=== PATIENT | female | born 1965 | race Caucasian/White ===

== ENCOUNTER 2016-08-11 18:35 | Observation (INO) ==
[2016-08-11 19:13] LABS: Basophils % 0.8 %; Eosinophils # 0.1 K/mcL (0.0-0.6); Eosinophils % 1.7 %; Hemoglobin 12.4 g/dL (11.5-15.4); Immature Granulocytes % 0.6 % (0-4); Lymphocytes # 1.2 K/mcL (0.6-4.6); Lymphocytes % 25.9 %; Mean Corpuscular HGB Conc 35.4 g/dL (31.6-35.5); Mean Corpuscular Hemoglobin 33.1 pg (28.0-33.3); Mean Corpuscular Volume 93.3 fL (83.0-100.0); Mean Platelet Volume 11.5 fL (9.4-12.4); Monocytes # 0.5 K/mcL (0.0-1.3); Monocytes % 10.9 %; Neutrophils # 2.9 K/mcL (1.6-8.9); Platelet Count 116 K/mcL (140-400); Red Blood Count 3.75 M/mcL (3.82-4.97); Red Cell Distribution Width 16.3 % (11.5-14.5); Segmented Neutrophils % 60.1 %
[2016-08-11] MEDS ORDERED: Ipratropium/Albuterol Neb 3 ML IH ONE (19:15)
[2016-08-11 19:17] LABS: Prothrombin Time 10.4 Seconds (9.4-12.1)
[2016-08-11 19:19] LABS: Activated Partial Thrombo Time 28.1 Seconds (26.0-36.0)
[2016-08-11 19:23] LABS: BUN/Creatinine Ratio 35 (6-26); Blood Urea Nitrogen 28 mg/dL (7-20); Calcium 9.4 mg/dL (8.6-10.8); Carbon Dioxide 24 mEq/L (19-29); Chloride 95 mEq/L (98-109); Glucose 94 mg/dL (70-99); Osmolality,Calculated 277 (280-300); Potassium 4.4 mEq/L (3.5-4.5); Sodium 131 mEq/L (136-145); eGFR For African Americans > 60 (> 60); eGFR For Non-African Americans > 60 (> 60)
--- NOTE | 2016-08-11 20:42 | Emergency Department Note ---
Disposition Clinical Impression: Chest pain Qualifiers: Chest pain type: unspecified Qualified Code(s): R07.9 - Chest pain, unspecified Hypertension Qualifiers: Hypertension type: essential hypertension Qualified Code(s): I10 - Essential ( primary) hypertension Disposition: Admitted As Inpatient Condition: Good Referrals: Matilde Barron CNP [Primary Care Provider] - Forms: ED Satisfaction Letter Chest Pain HPI - General Chief Complaint: ED Chest Pain Stated Complaint: Chest Pain Time Seen by Provider: 08/11/16 18:45 Source: EMS Limitations: no limitations Vital Signs Reviewed: Yes Nursing Notes Reviewed: Yes - History of Present Illness Pt complaint: chest pain Onset (ago): week(s) (1) Duration: intermittent Onset: during rest Pain Location: left chest Severity scale (1-10): 4 Quality: sharp Pain Radiation: none Improves with: nothing Worsens with: nothing Associated symptoms: Denies: nausea, vomiting, syncope, palpitations Treatments prior to arrival chest pain: aspirin, nitroglycerin - Related Data Home Medications Medication Instructions Recorded Confirmed Aspirin [Adult Low Dose Aspirin EC] 81 mg PO QAM 07/11/15 07/18/15 Ibuprofen [Motrin] 800 mg PO Q8HR 07/11/15 08/08/16 Lisinopril [Zestril] 20 mg PO DAILY 07/11/15 08/08/16 Loratadine [Claritin] 10 mg PO DAILY 07/11/15 08/08/16 Metoprolol [Lopressor] 100 mg PO QAM 07/11/15 08/08/16 Gabapentin [Neurontin] 400 mg PO TID 08/08/16 08/08/16 Previous Rx's Medication Instructions Recorded CloNIDine HCl 0.1 mg PO TID #30 tablet 08/08/16 Tramadol HCl [Ultram] 50 mg PO QID #16 tab 08/08/16 Allergies Allergy/AdvReac Type Severity Reaction Status Date / Time Sulfa (Sulfonamide Allergy Vomiting Verified 08/11/16 18:37 Antibiotics) All systems ED: reviewed and negative except as stated. 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 - Social History Smoking Status: Current every day smoker Alcohol use: Reports: occasionally, heavy Drug use: Reports: none Physical Exam - General Limitations: no limitations General appearance: alert, in no apparent distress - Head Head exam: atraumatic, normocephalic, normal inspection - Eye Eye exam: Present: normal appearance, PERRL, EOMI - Expanded Eye Exam Pupils: Left: reactive - ENT ENT exam: normal exam, normal oropharynx, mucous membranes moist - Expanded ENT Exam External ear exam: Present: normal external inspection Mouth exam: Present: normal external inspection Teeth exam: Present: normal inspection Throat exam: Present: normal inspection - Neck Neck exam: Present: normal inspection, full ROM, trachea midline - Chest Chest inspection: Present: normal inspection, symmetric chest wall rise - Respiratory Respiratory exam: Present: wheezes (Bilateral scattered with rhonchi) - Cardiovascular Cardiovascular exam: Present: regular rate, normal rhythm, normal heart sounds - Abdominal Exam Abdominal exam: Present: soft, Non-Tender. Absent: tenderness, distention, guarding, rebound, rigidity - Extremities Exam Extremities exam: Present: normal inspection, full ROM. Absent: tenderness, pedal edema - Expanded Upper Extremity Exam Shoulder exam: Present: normal inspection, full ROM Arm exam: Present: normal inspection, full ROM Elbow exam: Present: normal inspection, full ROM Forearm/Wrist exam: Present: normal inspection, full ROM Hand exam: Present: normal inspection, full ROM Vascular exam: Normal: capillary refill, radial pulse - Expanded Lower Extremity Exam Hip/Pelvis exam: Present: normal inspection, full ROM Upper leg exam: Present: normal inspection, full ROM Knee exam: Present: normal inspection, full ROM Lower leg exam: Present: normal inspection, full ROM Ankle exam: Present: normal inspection, full ROM Foot/toe exam: Present: normal inspection, full ROM Neurovascular/Tendon exam: Absent: motor deficit, sensory deficit, tendon deficit - Back Exam Back exam: Present: normal inspection, full ROM. Absent: tenderness - Neurological Exam Neurological exam: Present: alert, oriented X3 - Expanded Neurological Exam Patient oriented to: Present: person, place, time Coma Scale Eye Opening: Spontaneous Coma Scale Motor Response: Obeys Commands Coma Scale Verbal Response: Oriented Coma Scale Total: 15 - Psychiatric Psychiatric exam: Present: normal affect, normal mood - Skin Skin exam: Present: warm, dry, intact, normal color Course Vital Signs Temperature 98.3 F 08/11/16 18:39 Pulse Rate 58 08/11/16 18:39 Respiratory Rate 19 08/11/16 18:39 Blood Pressure 182/86 08/11/16 18:39 O2 Sat by Pulse Oximetry 100 08/11/16 18:39 Temperature 98.3 F 08/11/16 18:39 Pulse Rate 54 08/11/16 18:53 Respiratory Rate 16 08/11/16 19:55 Blood Pressure 182/86 08/11/16 18:53 O2 Sat by Pulse Oximetry 100 08/11/16 19:55 Oxygen Delivery Oxygen Delivery Room Air Chest Pain - Differential Diagnosis Likely: atypical chest pain, chest pain - Medical Records Medical records reviewed: Yes I reviewed the patient's medical records. - Lab Data Lab results reviewed: Yes I reviewed the patient's lab results. Result diagrams: 08/11/16 19:05 08/11/16 19:05 Lab Results 08/11/16 08/11/16 08/11/16 Range/Units 19:05 19:05 19:05 WBC 4.8 (4.3-11.1) K/mcL RBC 3.75 L (3.82-4.97) M/mcL Hgb 12.4 D (11.5-15.4) g/dL Hct 35.0 L (35.3-44.9) % MCV 93.3 (83.0-100.0) fL MCH 33.1 (28.0-33.3) pg MCHC 35.4 (31.6-35.5) g/dL RDW 16.3 H (11.5-14.5) % Plt Count 116 L (140-400) K/mcL MPV 11.5 (9.4-12.4) fL Immature Gran % 0.6 (0-4) % Seg Neutrophils % 60.1 % Lymphocytes % 25.9 % Monocytes % 10.9 % Eosinophils % 1.7 % Basophils % 0.8 % Neutrophils # 2.9 (1.6-8.9) K/mcL Lymphocytes # 1.2 (0.6-4.6) K/mcL Monocytes # 0.5 (0.0-1.3) K/mcL Eosinophils # 0.1 (0.0-0.6) K/mcL Basophils # 0.0 (0.0-0.2) K/mcL PT 10.4 (9.4-12.1) Seconds INR 1.0 APTT 28.1 (26.0-36.0) Seconds Sodium 131 L (136-145) mEq/L Potassium 4.4 (3.5-4.5) mEq/L Chloride 95 L (98-109) mEq/L Carbon Dioxide 24 (19-29) mEq/L BUN 28 H (7-20) mg/dL Creatinine 0.79 (0.57-1.11) mg/dL Est GFR ( Amer) > 60 (> 60) Est GFR (Non-Af Amer) > 60 (> 60) BUN/Creatinine Ratio 35 H (6-26) Glucose 94 (70-99) mg/dL Calculated Osmolality 277 L (280-300) Calcium 9.4 (8.6-10.8) mg/dL Troponin I (0-0.03) ng/mL 08/11/16 Range/Units 19:05 WBC (4.3-11.1) K/mcL RBC (3.82-4.97) M/mcL Hgb (11.5-15.4) g/dL Hct (35.3-44.9) % MCV (83.0-100.0) fL MCH (28.0-33.3) pg MCHC (31.6-35.5) g/dL RDW (11.5-14.5) % Plt Count (140-400) K/mcL MPV (9.4-12.4) fL Immature Gran % (0-4) % Seg Neutrophils % % Lymphocytes % % Monocytes % % Eosinophils % % Basophils % % Neutrophils # (1.6-8.9) K/mcL Lymphocytes # (0.6-4.6) K/mcL Monocytes # (0.0-1.3) K/mcL Eosinophils # (0.0-0.6) K/mcL Basophils # (0.0-0.2) K/mcL PT (9.4-12.1) Seconds INR APTT (26.0-36.0) Seconds Sodium (136-145) mEq/L Potassium (3.5-4.5) mEq/L Chloride (98-109) mEq/L Carbon Dioxide (19-29) mEq/L BUN (7-20) mg/dL Creatinine (0.57-1.11) mg/dL Est GFR ( Amer) (> 60) Est GFR (Non-Af Amer) (> 60) BUN/Creatinine Ratio (6-26) Glucose (70-99) mg/dL Calculated Osmolality (280-300) Calcium (8.6-10.8) mg/dL Troponin I 0.00 (0-0.03) ng/mL - Radiology Data Radiology results reviewed: Yes I reviewed the patient's radiology results. - EKG Data EKG shows normal: sinus rhythm Rate: bradycardia (55) Heart block present: 1st Degree Interpretation: nonspecific ST-T wave changes
[2016-08-11] MEDS ORDERED: *HR* Metoprolol 5 MG/5 ML VIAL IVP ONE (20:44)
[2016-08-11] MEDS ORDERED: traMADol 50 MG TABLET PO PRN (23:33)
[2016-08-11] MEDS ORDERED: Ondansetron 4 MG/2 ML VIAL IVP PRN (23:35)
[2016-08-11] MEDS ORDERED: *HR* LORazepam 2 MG/ML VIAL IVP PRN ×3 (23:35)
[2016-08-11] MEDS ORDERED: Acetaminophen 325 MG TABLET PO PRN (23:35)
[2016-08-11] MEDS ORDERED: Pantoprazole 40 MG VIAL IVP STA (23:35)
[2016-08-11] MEDS ORDERED: *HR* Morphine 2 MG/ML SYRINGE IVP PRN (23:35)
[2016-08-11] MEDS ORDERED: Naloxone 0.4 MG/ML INJ IVP PRN (23:35)
[2016-08-11] MEDS ORDERED: Aspirin 81 MG TAB.CHEW PO ONE (23:44)
[2016-08-11] MEDS ORDERED: methylPREDNISolone 125 MG/2 ML VIAL IVP STA (23:44)
[2016-08-11] MEDS ORDERED: *HR* Metoprolol 5 MG/5 ML VIAL IVP PRN (23:44)
[2016-08-11] MEDS ORDERED: Albuterol 2.5 MG/3 ML NEBULIZER IH PRN (23:44)
[2016-08-11] MEDS ORDERED: Nitroglycerin 0.4 MG TAB.SUBL SL PRN (23:44)
[2016-08-11] MEDS ORDERED: Benzonatate 100 MG CAPSULE PO PRN (23:44)
[2016-08-12] MEDS: Gabapentin 400 MG CAPSULE PO SCH ×3 (00:57→20:18)
[2016-08-12] MEDS: (Combigan 0.2%-0.5% Eye) OP SCH ×3 (00:57→20:19)
[2016-08-12] MEDS: *HR* OxyCODONE Immed Rel 5 MG TABLET PO PRN ×4 (00:58→20:40)
[2016-08-12] MEDS: cloNIDine HCl 0.1 MG TABLET PO SCH ×4 (00:58→20:18)
--- NOTE | 2016-08-12 00:59 | Internal Med History&Physical ---
Date of Encounter: 08/11/16 Time of Encounter: 23:00 Assessment and Plan (1) Acute chest wall pain Status: Acute . (2) Chest pain, rule out acute myocardial infarction Status: Acute . (3) Chest pain with low risk of acute coronary syndrome Status: Acute . (4) Acute on chronic respiratory failure with hypoxia and hypercapnia Status: Acute . (5) Asthma exacerbation with COPD (chronic obstructive pulmonary disease) Status: Acute . (6) Hyponatremia with decreased serum osmolality Status: Acute . (7) Costochondritis, acute Status: Acute . (8) Nicotine dependence with nicotine-induced disorder Status: Acute . Qualifiers: Nicotine product type: cigarettes Qualified Code(s): F17.219 - Nicotine dependence, cigarettes, with unspecified nicotine-induced disorders (9) Alcohol dependence syndrome Status: Acute . Qualifiers: Substance use status: unspecified alcohol-induced disorder Qualified Code(s ): F10.29 - Alcohol dependence with unspecified alcohol-induced disorder (10) DDD (degenerative disc disease), cervical Status: Acute . (11) Hypertension Status: Acute . Qualifiers: Hypertension type: essential hypertension Qualified Code(s): I10 - Essential (primary) hypertension Internal Medicine - H&P: HPI Chief complaint: Chest pain Admitted From: Emergency Dept Plans for Post Hospital Care: Home History of present illness: Ms. Manning is a 51 year old female is significant for hypertension, dyslipidemia, COPD, GERD, depression and anxiety, DDD of spine, osteoarthritis, osteopenia, peripheral neuropathy, chronic MSK pain syndrome, H/O alcohol dependency/abuse, nicotine dependency. The patient was visited and interviewed and examined. The patient is admitted to [facility] via the emergency department when she presented via EMS services from home with complaints of acute onset of left-sided chest pain occurring during rest intermittent in nature and sharp. Symptoms have been waxing and waning over a 4 day period of time was on the night of emergency room presentation. Intensity of discomfort was rated at 4-6/10. No radiation was appreciated and nothing seemed to improve discomfort when present and nothing seemed to make it worse. She denied any associated nausea vomiting presyncopal or syncopal events of perceived palpitations or edema. She acknowledgedd respiratory variation in chest pain with cough and deep inspiration. Denied any chest wall trauma. Denied hemoptysis. He acknowledges dyspnea at rest or with exertion with audible wheezing. Cough is have not scant sputum production with in nature. Denies any associated fevers chills sweats. Denies any dietary occasional recreational indiscretions. Cannot validate any potential sick contacts. She has a continuing smoker. Findings in the ED temperature 98.3 pulse 50-58 respiration 16-19 BP 182/86 with saturation 100% room air. WBC 4.8 hemoglobin 12.4 platelets 116,000. RDW 16.3. Differential normal. PT 10.4 INR 1 PTT 28.1. Metabolic panel shows a sodium 131 chloride 95. BUN 18 creatinine 0.79. Glucose 94 osmolality 277. Troponin 0.00. EKG bradycardic rate 55 bpm. First degree AV block. Nonspecific ST-T wave changes. Portable chest x-ray demonstrates no acute or active cardiopulmonary process. Preliminary impression suggests atypical chest pain with tactile and respiratory reproducibility. Patient however presents at risk for acute coronary events acknowledging her comorbidities. Presentation does suggest underlying COPD exacerbation with acute on chronic bronchitis- bronchiolitis and bronchospasm. Laboratory relatively benign. Mild hyponatremia hypo-osmolality is noted. Presenting concerns and clinical findings the patient is at relative risk for further clinical decline and/or morbidity. Workup and treatment will proceed comprehensively. Cumulative laboratory and radiographic data base was reviewed, considered and discussed. Pertinent ancillary medical records including ECW and PCI documentation was reviewed and considered. Given the patient's presenting concerns, past medical history, clinical findings and symptoms, she is admitted at this time will undergo further evaluation and disposition. Orders were written as per the computerized physician order desk caller system.......................................................................... .................... Consultative opinions will be sought as clinical circumstances justify. Pain management needs will be addressed. Laboratory and radiographic data base will be updated as appropriate. Studies include: Cultures of blood urine sputum, CPK, cardiac injury panel, BNP, PT/INR , APTT, metabolic and hematologic panel, magnesium, phosphorus, ionized calcium , thyroid panel, lipid profile, A1c, C-peptide, CRP, sedimentation rate, respiratory infection profile, respiratory virus panel, blood gas, lactic acid, amylase, lipase, UA, UDS, ETOH, serologies, etc. Precautions: Aspiration, fall, seizure, delirium protocol/surveillance initiated. Alcohol withdrawal-detoxification protocols initiated. CIWA/SAS protocol/surveillance initiated. Telemetry with continuous hemodynamic monitoring and pulse oximetry initiated. Empiric antibody coverage: Intravenous Rocephin and azithromycin pending culture data. Special studies: CT chest, chest x-ray, telemetry, EKG, echocardiogram, LE ABIs. Pulmonary toilet: Incentive spirometry, aerosol bronchodilator, mucolytic, antitussive, supplemental oxygen. Corticosteroid therapy. CPAP/BiPAP supplemental oxygen delivery. Aerosol Mucomyst therapy. Fluid and electrolyte repletion efforts will proceed. Careful attention to fluid balance and renal recovery will be emphasized. Avoidance of nephrotoxic exposure and adverse drug drug interaction in the setting of impaired renal function will be monitored closely. Acute coronary syndrome protocol/surveillance initiated. Aspirin, statin, LARON inhibitor, beta daniel, supplemental oxygen. Nitrates PRN. Morphine PRN. SQ heparin. DVT and PUD prophylaxis initiated: PPI therapy, intermittent pneumatic cuffs/ TEDs. Subcutaneous heparin. Early ambulation will be encouraged. Immunization updates recommended. Influenza and pneumococcal vaccinations as part of ongoing preventative healthcare recommendations strongly recommended. Smoking cessation counseling briefly addressed. Patient accepts nicotine medication during this hospitalization.. Advanced care directive discussion briefly addressed. Patient does not declare any healthcare restrictions at this time. Cardiovascular risk appraisal and cardiovascular risk reduction efforts will be emphasized. Physical and occupational therapy may be consulted to assess patient's functional capacity and progress mobility if circumstances warrant. Nutrition/dietary education counseling may be considered as circumstances justify. Outpatient medication schedules will be reviewed, confirmed and facilitated as appropriate. Reconciliation of home treatments including adjustments, substitutions and reintroduction into the treatment regimen will address necessary maintenance therapies for chronic pre-existing medical conditions. Plan of care has been reviewed and discussed in detail with the patient. Questions addressed. Hospital course will depend upon clinical findings, treatment response and potential consultative interventions. Patient is at risk for further acute clinical decline and morbidity due to the presenting chief complaints, findings and comorbidities. Condition is serious. Prognosis is cautiously optimistic. CODE STATUS is full. Past Med Surg Social Fam HX - Past Medical History Source: old records reviewed Medical history: arthritis, asthma, COPD, GERD, hyperlipidemia, hypertension, osteoporosis, other Psychiatric history: anxiety, depression, other - Past Surgical History Surgical History: , other - Social History Smoking Status: Current every day smoker Packs per day: 1-2ppd since 12yo Smokeless Tobacco Status: No Alcohol use: occasionally, heavy (daily; vodka and beer preferred.) Drug use: none Occupational status: unemployed Current living situation: With Family Activity Level: Independent ambulation, Mostly sedentary Recent Out of Country Travel Within the Last 8 Weeks: No Exposure or Possible Exposure to Illness During Travel: No - Family History Mother Hx Family Endocrine Disorder: Yes (DIABETIC) Internal Medicine - H&P: Meds Aspirin [Adult Low Dose Aspirin EC] 81 mg PO QAM 07/11/15 [History] Ibuprofen [Motrin] 800 mg PO Q8HR 07/11/15 [History] Lisinopril [Zestril] 20 mg PO DAILY 07/11/15 [History] CloNIDine HCl 0.1 mg PO TID #30 tablet 08/08/16 [Rx] Gabapentin [Neurontin] 400 mg PO QAM 08/08/16 [History] Brimonidine Tartrate/Timolol [Combigan 0.2%-0.5% Eye Drops] 1 drop OP BID [History] Cetirizine HCl 10 mg PO DAILY 08/11/16 [History] Gabapentin [Neurontin] 800 mg PO HS 08/11/16 [History] Metoprolol XL (24 HR) Succ [Toprol Xl] 100 mg PO DAILY 08/11/16 [History] Tramadol HCl [Ultram] 50 mg PO QID PRN 08/11/16 [History] Fluticasone/Salmeterol [Advair 250-50 Diskus] 1 each IH BID #1 blst.w.dev [Rx] HydrALAZINE 25 mg PO Q8HR #90 tablet 08/13/16 [Rx] Levofloxacin [Levaquin] 500 mg PO DAILY #10 tablet 08/13/16 [Rx] Nicotine Patch [Nicoderm] 21 mg TD DAILY #14 patch.td24 08/13/16 [Rx] PredniSONE 10 mg PO DAILY #30 tablet 08/13/16 [Rx] Tiotropium [Spiriva] 18 mcg IH DAILY #1 inh 08/13/16 [Rx] Allergies Sulfa (Sulfonamide Antibiotics) Allergy (Verified 08/11/16 18:37) Vomiting All Systems PM: A 10-system review of systems was performed and is negative for pertinent findings except as documented above in the HPI. - Constitutional Constitutional: as per HPI, malaise, no chills, no fever(s), no night sweats - EENT Eyes: as per HPI, no change in vision, no discharge, no pain, no photophobia Ears: as per HPI, no ear discharge, no ear pain, no tinnitus Nose, mouth and throat: as per HPI, no dysphagia, no nasal discharge, no neck pain, no sore throat - Cardiovascular Cardiovascular ROS IM: as per HPI, chest pain, no diaphoresis, no dyspnea, no lightheadedness, no palpitations, no syncope - Respiratory Respiratory: as per HPI, cough, dyspnea on exertion, wheezing, pain on inspiration, chest congestion, pain with cough, no dyspnea, no excessive phlegm production - Gastrointestinal Gastrointestinal: as per HPI, no abdominal pain, no diarrhea, no hematemesis, no hematochezia, no melena, no nausea, no vomiting - Genitourinary Genitourinary: as per HPI, no change in urinary stream, no dysuria, no flank pain, no hematuria - Musculoskeletal Musculoskeletal ROS IM: as per HPI, no numbness, no tingling - Integumentary Integumentary IM: as per HPI, no rash, no unusual bruising - Neurological Neurological ROS: as per HPI, no confusion, no convulsions, no focal weakness, no numbness, no tingling, no tremor(s) - Psychiatric Psychiatric: as per HPI - Endocrine Endocrine IM: as per HPI - Hematologic/Lymphatic Hematologic/Lymphatic: as per HPI, no easy bruising - Allergic/Immunologic Allergic/Immunologic: as per HPI - Constitutional Vitals: Temp Pulse Resp BP Pulse Ox 98.0 F 59 16 192/75 98 08/11/16 22:34 08/11/16 22:34 08/11/16 22:34 08/11/16 22:34 08/11/16 22:34 General appearance: Present: cooperative, mild distress, A&O X 3, answers questions appropriately - Head Head exam: Present: atraumatic, normocephalic - Eye Eye exam: Present: EOMI, PERRL, conjuntiva pink, sclera anicteric Pupils: Present: normal accommodation, PERRL - ENT ENT exam: Present: mucous membranes moist, normal oropharynx - Neck Neck exam general surgery: Present: full ROM, tenderness, supple, trachea midline. Absent: lymphadenopathy, nuchal rigidity - Expanded Neck Exam Neck exam: Present: tenderness. Absent: carotid bruit - Respiratory Respiratory exam: Present: chest wall tenderness, decreased breath sounds, rhonchi, wheezes. Absent: accessory muscle use, rales - Cardiovascular Cardiovascular exam: Present: distant heart sounds, RRR, +S1, +S2. Absent: diastolic murmur, gallop, rubs, systolic murmur - GI/Abdominal GI/Abdominal exam: Present: normal bowel sounds, soft, no peritoneal signs. Absent: distended, tenderness - Extremities Exam Extremities exam: Present: full ROM, warm, radial pulses palpable and symetrical. Absent: calf tenderness, cyanotic, pedal edema - Neurological Exam Neurological exam: Present: alert, CN II-XII intact, oriented X3, no focal deficits. Absent: pronater drift, facial droop, speech deficit - Psychiatric Psychiatric exam: Present: anxious, normal affect, normal mood - Skin Skin exam: Present: dry, intact, warm. Absent: petechiae, rash, urticaria, vesicles Internal Med - H&P Results - Labs CBC & Chem 7: 08/13/16 03:57 08/13/16 03:57 - Impressions Vital Signs Temp Pulse Resp BP Pulse Ox 08/11/16 22:34 98.0 F 59 16 192/75 98 08/11/16 22:05 97.8 F 18 168/82 08/11/16 19:55 16 100 08/11/16 18:53 54 22 182/86 100 08/11/16 18:43 54 22 182/86 100 08/11/16 18:39 98.3 F 58 19 182/86 100 Intake and Output 08/11/16 08/11/16 08/12/16 15:59 23:59 07:59 Other: Weight 56.699 kg Short CBC 08/11/16 Range/Units 19:05 WBC 4.8 (4.3-11.1) K/mcL Hgb 12.4 D (11.5-15.4) g/dL Hct 35.0 L (35.3-44.9) % Plt Count 116 L (140-400) K/mcL Neutrophils # 2.9 (1.6-8.9) K/mcL BMP 08/11/16 Range/Units 19:05 Sodium 131 L (136-145) mEq/L Potassium 4.4 (3.5-4.5) mEq/L Chloride 95 L (98-109) mEq/L Carbon Dioxide 24 (19-29) mEq/L BUN 28 H (7-20) mg/dL Creatinine 0.79 (0.57-1.11) mg/dL Glucose 94 (70-99) mg/dL Calcium 9.4 (8.6-10.8) mg/dL Cardiac Enzymes 08/11/16 Range/Units 19:05 Troponin I 0.00 (0-0.03) ng/mL Abnormal lab results RBC 3.75 M/mcL (3.82-4.97) L 08/11/16 19:05 Hct 35.0 % (35.3-44.9) L 08/11/16 19:05 RDW 16.3 % (11.5-14.5) H 08/11/16 19:05 Plt Count 116 K/mcL (140-400) L 08/11/16 19:05 Sodium 131 mEq/L (136-145) L 08/11/16 19:05 Chloride 95 mEq/L (98-109) L 08/11/16 19:05 BUN 28 mg/dL (7-20) H 08/11/16 19:05 BUN/Creatinine Ratio 35 (6-26) H 08/11/16 19:05 Calculated Osmolality 277 (280-300) L 08/11/16 19:05 Allergies Allergy/AdvReac Type Severity Reaction Status Date / Time Sulfa (Sulfonamide Allergy Vomiting Verified 08/11/16 18:37 Antibiotics) Laboratory Results WBC 4.8 K/mcL (4.3-11.1) 08/11/16 19:05 RBC 3.75 M/mcL (3.82-4.97) L 08/11/16 19:05 Hgb 12.4 g/dL (11.5-15.4) D 08/11/16 19:05 Hct 35.0 % (35.3-44.9) L 08/11/16 19:05 MCV 93.3 fL (83.0-100.0) 08/11/16 19:05 MCH 33.1 pg (28.0-33.3) 08/11/16 19:05 MCHC 35.4 g/dL (31.6-35.5) 08/11/16 19:05 RDW 16.3 % (11.5-14.5) H 08/11/16 19:05 Plt Count 116 K/mcL (140-400) L 08/11/16 19:05 MPV 11.5 fL (9.4-12.4) 08/11/16 19:05 Immature Gran % 0.6 % (0-4) 08/11/16 19:05 Seg Neutrophils % 60.1 % 08/11/16 19:05 Lymphocytes % 25.9 % 08/11/16 19:05 Monocytes % 10.9 % 08/11/16 19:05 Eosinophils % 1.7 % 08/11/16 19:05 Basophils % 0.8 % 08/11/16 19:05 Neutrophils # 2.9 K/mcL (1.6-8.9) 08/11/16 19:05 Lymphocytes # 1.2 K/mcL (0.6-4.6) 08/11/16 19:05 Monocytes # 0.5 K/mcL (0.0-1.3) 08/11/16 19:05 Eosinophils # 0.1 K/mcL (0.0-0.6) 08/11/16 19:05 Basophils # 0.0 K/mcL (0.0-0.2) 08/11/16 19:05 PT 10.4 Seconds (9.4-12.1) 08/11/16 19:05 INR 1.0 08/11/16 19:05 APTT 28.1 Seconds (26.0-36.0) 08/11/16 19:05 Sodium 131 mEq/L (136-145) L 08/11/16 19:05 Potassium 4.4 mEq/L (3.5-4.5) 08/11/16 19:05 Chloride 95 mEq/L (98-109) L 08/11/16 19:05 Carbon Dioxide 24 mEq/L (19-29) 08/11/16 19:05 BUN 28 mg/dL (7-20) H 08/11/16 19:05 Creatinine 0.79 mg/dL (0.57-1.11) 08/11/16 19:05 Est GFR ( Amer) > 60 (> 60) 08/11/16 19:05 Est GFR (Non-Af Amer) > 60 (> 60) 08/11/16 19:05 BUN/Creatinine Ratio 35 (6-26) H 08/11/16 19:05 Glucose 94 mg/dL (70-99) 08/11/16 19:05 Calculated Osmolality 277 (280-300) L 08/11/16 19:05 Calcium 9.4 mg/dL (8.6-10.8) 08/11/16 19:05 Troponin I 0.00 ng/mL (0-0.03) 08/11/16 19:05 Impressions Chest X-Ray 08/11/16 18:45 IMPRESSION: No acute cardiopulmonary abnormality. D/ / Jayme Mancini MD / Jayme Mancini MD Interpreting Provider: Jayme Mancini MD
[2016-08-12] MEDS: 0.9 % Sodium Chloride 1,000 ML IVC SCH (01:06)
[2016-08-12] MEDS: Nicotine 21 MG PATCH.TD24 TD SCH ×2 (01:07→12:48)
[2016-08-12 01:33] LABS: Hematocrit 36.6 % (35.3-44.9); Mean Corpuscular HGB Conc 35.5 g/dL (31.6-35.5); Mean Corpuscular Hemoglobin 33.3 pg (28.0-33.3); Mean Corpuscular Volume 93.8 fL (83.0-100.0); Mean Platelet Volume 12.1 fL (9.4-12.4); Platelet Count 113 K/mcL (140-400); Red Cell Distribution Width 16.6 % (11.5-14.5); VBG HCO3 29.8 mEq/L (21-27); VBG PH 7.41 pH Units (7.32-7.42)
[2016-08-12 01:48] LABS: Hemoglobin A1C 5.6 %; Magnesium 1.9 mg/dL (1.6-2.6); Phosphorous 2.4 mg/dL (2.3-4.7)
[2016-08-12 01:52] LABS: Alanine Aminotransferase 41 Units/L (0-55); Albumin 4.1 g/dL (3.5-5.0); Albumin/Globulin Ratio 1.1 (1.1-2.2); Alkaline Phosphatase 112 Units/L (38-126); Aspartate Amino Transferase 66 Units/L (5-34); BUN/Creatinine Ratio 30 (6-26); Bilirubin,Total 0.8 mg/dL (0.2-1.2); Blood Urea Nitrogen 25 mg/dL (7-20); C-Reactive Protein 2 mg/L (Less than 5); Calcium 9.7 mg/dL (8.6-10.8); Carbon Dioxide 24 mEq/L (19-29); Chloride 94 mEq/L (98-109); Chol/HDL Ratio 2.4 (0-4.9); Cholesterol 226 mg/dL (< 200); Globulin 3.9 g/dL (2.4-3.5); Glucose 143 mg/dL (70-99); HDL Cholesterol 96 mg/dL (40-59); LDL Cholesterol,Calculated 108 mg/dL (0-99); Osmolality,Calculated 279 (280-300); Sodium 131 mEq/L (136-145); Triglycerides 112 mg/dL (< 150); eGFR For African Americans > 60 (> 60); eGFR For Non-African Americans > 60 (> 60)
[2016-08-12 01:55] LABS: Amphetamine Screen,Urine Negative ng/mL (Cutoff=1000); Barbiturate Screen,Urine Negative ng/mL (Cutoff=200); Benzodiazepines Screen,Urine Negative ng/mL (Cutoff=200); Cannabinoid Screen,Urine Negative ng/mL (Cutoff = 50); Cocaine Screen,Urine Negative ng/mL (Cutoff= 300); Opiate Screen,Urine Negative ng/mL (Cutoff=300); Phencyclidine Screen,Urine Negative ng/mL (Cutoff=25)
[2016-08-12] MEDS: Azithromycin 500 MG in D5% in Water 250 ML IVPB SCH ×2 (02:00→23:54)
[2016-08-12 02:01] LABS: Amylase 56 Units/L (25-125); Ethanol < 10 mg/dL (0-10); Lipase 58 Units/L (8-78)
[2016-08-12] MEDS: Ipratropium/Albuterol Neb 3 ML IH SCH ×4 (05:07→23:01)
[2016-08-12] MEDS: *HR* Heparin 5,000 UNIT/ML VIAL SQ SCH ×3 (06:02→23:55)
[2016-08-12] MEDS: Aspirin Enteric Coated 81 MG Tablet PO SCH (08:25)
[2016-08-12] MEDS: Loratadine 10 MG TABLET PO SCH (08:25)
[2016-08-12] MEDS: Fluconazole 100 MG TABLET PO SCH (08:27)
[2016-08-12] MEDS: Folic Acid 1 MG TABLET PO SCH (08:27)
[2016-08-12] MEDS: predniSONE 20 MG TABLET PO SCH (08:28)
[2016-08-12] MEDS: Thiamine (B-1) 100 MG TABLET PO SCH (08:28)
[2016-08-12] MEDS: Vitamin B Complex/Vit C/Vit E 1 EACH TABLET PO SCH (08:28)
[2016-08-12] MEDS: Aspirin 81 MG TAB.CHEW PO SCH (08:38)
[2016-08-12] MEDS ORDERED: Metoprolol XL (24 HR) Succ 50 MG TAB.ER.24H PO SCH (09:00)
[2016-08-12 11:09] LABS: Bilirubin,Urine Negative (Negative); Blood,Urine Negative (Negative); Clarity,Urine Clear (Clear); Color,Urine Yellow (Yellow); Glucose,Urine (UA) Normal (Normal); Ketones,Urine Trace mg/dL (Negative); Leukocyte Esterase,Urine Negative (Negative); Nitrite,Urine Negative (Negative); Protein,Urine Negative (Neg-Trace); Urobilinogen,Urine Normal (Normal)
--- NOTE | 2016-08-12 11:17 | ECHO - Doppler Report ---
Echocardiogram Name: Elvia Manning Date of Study: 08/12/2016 Date: 1965 Ht: 62.0 in Medical Record#: [id number] Age: 51 Wt: 126.0 lb Gender: Female BSA: 1.57 Order #: [id number] Location: [facility] Room #: [facility] Reading Physician: Mariia Hebert DO Scrap Baler: Marty Faria RN Ordering Physician: Austin Cutler MD Primary Physician: Matilde Barron CNP Indications: Chest pain Impressions: LVEF 60%. Normal left ventricular size and systolic function. There is evidence of mild diastolic dysfunction of the left ventricle. Normal right ventricular size and function. Mild pulmonic regurgitation. No pulmonary hypertension. Left Ventricular Wall Motion: Rest Echo Findings All wall segments showed normal motion. Findings: Study Quality * Technically adequate exam. ECG Findings * Sinus bradycardia. Left Ventricle * LVEF 60%. * Normal LV chamber size, wall thickness and function. * Mild left ventricular diastolic dysfunction. Aortic Valve * Trileaflet aortic valve. * Normal aortic valve structure. * No aortic stenosis. * Trace aortic regurgitation. Mitral Valve * Trace mitral regurgitation. * Normal mitral valve structure. * No mitral stenosis. Tricuspid Valve * Normal tricuspid valve structure. * Trace tricuspid regurgitation. * Estimated RA pressure is 3 mmHg. * Estimated RVSP is 18 mmHg. * No pulmonary hypertension. Pulmonic Valve * Pulmonic valve is not well visualized. * No pulmonic stenosis. * Mild pulmonic regurgitation. Pulmonary Artery * Pulmonary artery not well visualized. Right Ventricle * Normal right ventricular structure and function. Right Atrium * Normal right atrial size. Left Atrium * Moderately dilated left atrium. Interatrial Septum * Interatrial septum not well evaluated. IVC * Normal IVC dimensions and inspiratory collapse. Pericardium * There is no pericardial effusion present. Aorta * Normally sized aortic root. History Hypertension Hypercholesteremia History of Smoking Years 35 Packs 1 Measurements: BP: 145/ 81 2D Normal Values IVSd: .90 cm 0.6 - 1.0 cm LVIDd: 4.00 cm 3.7 - 5.6 cm LVPWd: .90 cm 0.6 - 1.1 cm LVIDs: 2.90 cm 1.5 - 3.6 cm LA: 3.40 cm 2.0 - 4.0cm %FS: 27.50 cm >25 % LVOT Diam: 2.00 cm LA volume: 72 Mitral Valve Peak E:1.00 m/sec Peak A:.80 m/sec E/A Ratio:1.3 Peak E' Lat Jensen:10.6 cm/s Peak E' Med Jensen:8.87 cm/s E/E' Lat Ratio:9.4 E/E' Med Ratio:11.2 Tricuspid Valve TV Regurg Peak Grad: 15.00mmHg TV Regurg Peak Jensen: 1.93m/sec Updated by Mariia Hebert on 08/12/2016 11:11:50 AM electronically signed on 08/12/2016 11:12:29 AM with status of Final Wall Motion [place]ada: 1=Normal, 2=Hypokinesis, 3=Akinesis, 4=Dyskinesis, 5=Aneurysmal, 6=Hyperkinetic, X=Not Visualized (Blank)=Missing
--- NOTE | 2016-08-12 11:31 | Electrocardiograph Report ---
[facility] Test Date: 2016-08-11 Pat Name: Elvia Manning Department: 103 Room: 3B47 Gender: F Bus Assistant: MARY : 1965 Requested By: Adam Martinez Order Number: [id number] Reading MD: Mariia Hebert Measurements Intervals Sod Rate: 55 P: 67 CT: 232 QRS: 54 QRSD: 96 T: 65 QT: 423 QTc: 412 Interpretive Statements SINUS BRADYCARDIA WITH FIRST DEGREE AV BLOCK POSSIBLE RIGHT VENTRICULAR CONDUCTION DELAY Electronically Signed On 08-12-16 11:30:25 EST by Mariia Hebert
--- NOTE | 2016-08-12 19:41 | Arterial Study Report ---
LE Arterial Physiologic Study Patient Name:Elvia Manning Order Number:[id number] Procedure Date:08/12/2016 Date:1965Age:51 yrs Gender:Female Lt BP:220 / mmHg Rt.BP:219 / mmHgHeart Rate: Location:[facility] Room #: [facility] Pyrometallurgical Engineer:Marty Faria RN Referring MD:Austin Cutler MD alarm mechanic:Matilde Barron, ASSISTANT PROGRAM MANAGER Reading MD:Ronald Ellison MD , FACS Primary Indications:Right Greater Than Left Leg Pain Risk Factors Yes/No Hypertension Yes Diabetes No Hypercholesterolemia Yes Smoking Current Yes Hx of TIA No Hx of CVA No Anticoagulants No Hx of CAD/PTCA No Previous Vascular Surgery No Impressions: 1) Bilateral lower extremities waveform demonstrates normal hemodynamics. 2) Bilateral Ankle Brachial Index is normal. 3) Overall Impression: Arterial hemodynamics are well maintained at rest. Recommendations: Test completed on 08/12/2016 at 10:30:00 am. Findings LE Arterial Physiologic Exam: Segmental Pressures: Right: The right posterior tibial pressure is 220 mmHg with an index of 1. The right dorsalis pedis pressure is 222 mmHg with an index of 1.01. Left: The left posterior tibial pressure is 230 mmHg with an index of 1.05. The left dorsalis pedis pressure is 221 mmHg with an index of 1. PVR: Right: The PVR waveforms are normal in the right ankle. Left: The PVR waveforms are normal in the left ankle. Prior Study: No prior study available for comparison. Segmental Pressures Side Location Pressure Index Result Right Posterior Tibial 220 1.00 Normal Right Dorsalis Pedis 222 1.01 Normal Left Posterior Tibial 230 1.05 Normal Left Dorsalis Pedis 221 1.00 Normal Ankle Brachial Index Right Systolic Diastolic ADDISON Brachial 219 1.01 Dorsalis Pedis 222 1.01 Posterior Tibial 220 1.00 Left Systolic Diastolic ADDISON Brachial 220 1.05 Dorsalis Pedis 221 1.00 Posterior Tibial 230 1.05 Updated by Ronald Ellison MD, FACS on 08/12/2016 7:34:15 PM with Status of Final Ronald Ellison MD electronically signed on 08/12/2016 7:34:40 PM with status of Final
--- NOTE | 2016-08-12 20:08 | Internal Med Progress Note ---
Date of Encounter: 08/12/16 Time of Encounter: 20:04 - Assessment and plan (1) Asthma exacerbation with COPD (chronic obstructive pulmonary disease) Current Visit: Yes Status: Acute (2) Hypertension Current Visit: Yes Status: Acute Qualifiers: Hypertension type: essential hypertension Qualified Code(s): I10 - Essential (primary) hypertension (3) Hypertension, accelerated Current Visit: Yes Status: Acute (4) Lung nodule < 6cm on CT Current Visit: Yes Status: Acute (5) Lesion of liver Current Visit: Yes Status: Acute Assessment and plan: continue steroids, nebs and abx will order MRI abdomen to further evaluate liver per radiology recommendations. BP labile, will add hydralazine TID. continue lopressor, lisinopril and clonidine. Pt informed about lung nodule and need for close outpatient followup. - Subjective Interval history: Patient evaluated, seen lying in bed. no new complains. - Constitutional Vitals: Temp Pulse Resp BP Pulse Ox 98.1 F 68 12 169/85 98 08/12/16 19:34 08/12/16 19:34 08/12/16 19:34 08/12/16 19:34 08/12/16 19:34 General appearance: Present: A&O X 3 - Head Head exam: Present: atraumatic, normocephalic - Eye Eye exam: Present: PERRL, conjuntiva pink, sclera anicteric Pupils: Present: PERRL - Neck Neck exam general surgery: Present: supple, trachea midline. Absent: lymphadenopathy - Respiratory Respiratory exam: Present: CTAB. Absent: accessory muscle use, rales, rhonchi, wheezes - Cardiovascular Cardiovascular exam: Present: RRR, +S1, +S2. Absent: diastolic murmur, gallop, rubs, systolic murmur - GI/Abdominal GI/Abdominal exam: Present: normal bowel sounds, soft, no peritoneal signs. Absent: distended, tenderness - Extremities Exam Extremities exam: Present: warm, radial pulses palpable and symetrical. Absent : calf tenderness, cyanotic, pedal edema - Neurological Exam Neurological exam: Present: CN II-XII intact, oriented X3, no focal deficits. Absent: pronater drift, facial droop, speech deficit - Skin Skin exam: Present: dry, intact Internal Medicine: Result - Labs CBC & Chem 7: 08/12/16 01:10 08/12/16 01:10 Labs: Short CBC 08/12/16 Range/Units 01:10 WBC 4.4 (4.3-11.1) K/mcL Hgb 13.0 (11.5-15.4) g/dL Hct 36.6 (35.3-44.9) % Plt Count 113 L (140-400) K/mcL BMP 08/12/16 01:10 Sodium 131 L Potassium 4.0 Chloride 94 L Carbon Dioxide 24 BUN 25 H Creatinine 0.84 Glucose 143 H Calcium 9.7 Cardiac Enzymes 08/12/16 08/12/16 08/12/16 Range/Units 01:10 08:57 13:37 Troponin I 0.01 0.00 0.00 (0-0.03) ng/mL Liver Function 08/12/16 Range/Units 01:10 Total Bilirubin 0.8 (0.2-1.2) mg/dL AST 66 H (5-34) Units/L ALT 41 (0-55) Units/L Alkaline Phosphatase 112 (38-126) Units/L Albumin 4.1 (3.5-5.0) g/dL Urine 08/12/16 Range/Units 11:01 Urine Color Yellow (Yellow) Urine Clarity Clear (Clear) Urine pH 6.0 (5.0-8.0) pH Units Ur Specific Soldier 1.020 (1.010-1.025) Urine Protein Negative (Neg-Trace) mg/dL Urine Glucose (UA) Normal (Normal) mg/dL - ABG Interpretation ABG results: PT/INR, D-dimer PT 10.4 Seconds (9.4-12.1) 08/11/16 19:05 - Impressions Impressions Chest CT 08/12/16 07:40 IMPRESSION: Fatty liver with a 2.6 cm incompletely assessed low-attenuation lesion medial segment left lobe of the liver. MRI of the liver with gadolinium is recommended for complete assessment. Sequela of prior granulomatous disease. Two less than or equal to 4 mm pulmonary nodules. RECOMMENDATIONS: Fleischner Society guidelines for follow-up and management of pulmonary nodules: Nodule size less than or equal to 4 mm In a low-risk patient, no follow-up needed. In a high-risk patient, follow-up CT at 12 months; if unchanged, no further follow-up. Low risk patients include individuals with minimal or absent history of smoking and other known risk factors. High risk patients include individuals with a history of smoking or other known risk factors. Radiology 2005; 237:395-400 D/ / 08/12/2016 08:16:13 Cesar Jones MD / alfonso Interpreting Provider: Cesar Jones MD Consult Discharge Plan - Plan Referrals: Matilde Barron, MEDICAL TERRITORY MANAGER [Primary Care Provider] -
[2016-08-12] MEDS: Albuterol 2.5 MG/3 ML NEBULIZER IH SCH (22:44)
[2016-08-12] MEDS ORDERED: Water for inj. (sterile) 10 ML IV ONE (23:44)
[2016-08-12] MEDS: hydrALAZINE 25 MG TABLET PO SCH (23:55)
[2016-08-13] MEDS: 0.9 % Sodium Chloride 1,000 ML IVC SCH (00:01)
[2016-08-13] MEDS ORDERED: Haloperidol Lactate 5 MG/ML VIAL ONE (01:00)
[2016-08-13] MEDS: Haloperidol Lactate 5 MG/ML VIAL IVP STA ×2 (01:22→01:38)
[2016-08-13] MEDS ORDERED: Haloperidol Lactate 5 MG/ML VIAL IM ONE (01:41)
[2016-08-13] MEDS: Albuterol 2.5 MG/3 ML NEBULIZER IH SCH ×3 (04:00→15:36)
[2016-08-13] MEDS: Ipratropium/Albuterol Neb 3 ML IH SCH ×3 (04:00→15:34)
[2016-08-13 04:33] LABS: Basophils % 0.2 %; Eosinophils % 0.2 %; Hematocrit 33.3 % (35.3-44.9); Hemoglobin 11.6 g/dL (11.5-15.4); Immature Granulocytes % 0.3 % (0-4); Lymphocytes # 0.9 K/mcL (0.6-4.6); Lymphocytes % 13.9 %; Mean Corpuscular HGB Conc 34.8 g/dL (31.6-35.5); Mean Corpuscular Hemoglobin 32.8 pg (28.0-33.3); Mean Corpuscular Volume 94.1 fL (83.0-100.0); Mean Platelet Volume 12.9 fL (9.4-12.4); Monocytes # 0.8 K/mcL (0.0-1.3); Monocytes % 12.4 %; Neutrophils # 4.8 K/mcL (1.6-8.9); Platelet Count 125 K/mcL (140-400); Red Blood Count 3.54 M/mcL (3.82-4.97); Red Cell Distribution Width 16.3 % (11.5-14.5)
[2016-08-13 04:48] LABS: BUN/Creatinine Ratio 30 (6-26); Blood Urea Nitrogen 24 mg/dL (7-20); Calcium 9.4 mg/dL (8.6-10.8); Carbon Dioxide 24 mEq/L (19-29); Chloride 100 mEq/L (98-109); Glucose 149 mg/dL (70-99); Osmolality,Calculated 287 (280-300); Sodium 135 mEq/L (136-145); eGFR For African Americans > 60 (> 60); eGFR For Non-African Americans > 60 (> 60)
[2016-08-13] MEDS: (Combigan 0.2%-0.5% Eye) OP SCH (08:06)
[2016-08-13] MEDS: *HR* Heparin 5,000 UNIT/ML VIAL SQ SCH ×2 (08:07→15:10)
[2016-08-13] MEDS: Thiamine (B-1) 100 MG TABLET PO SCH (08:07)
[2016-08-13] MEDS: Fluconazole 100 MG TABLET PO SCH (08:07)
[2016-08-13] MEDS: predniSONE 20 MG TABLET PO SCH (08:07)
[2016-08-13] MEDS: Vitamin B Complex/Vit C/Vit E 1 EACH TABLET PO SCH (08:07)
[2016-08-13] MEDS: Loratadine 10 MG TABLET PO SCH (08:07)
[2016-08-13] MEDS: Aspirin 81 MG TAB.CHEW PO SCH (08:08)
[2016-08-13] MEDS: Aspirin Enteric Coated 81 MG Tablet PO SCH (08:08)
[2016-08-13] MEDS: Gabapentin 400 MG CAPSULE PO SCH (08:08)
[2016-08-13] MEDS: Folic Acid 1 MG TABLET PO SCH (08:08)
[2016-08-13] MEDS: hydrALAZINE 25 MG TABLET PO SCH ×2 (08:08→15:09)
[2016-08-13] MEDS: cloNIDine HCl 0.1 MG TABLET PO SCH ×2 (08:08→15:09)
[2016-08-13] MEDS: Nicotine 21 MG PATCH.TD24 TD SCH (08:08)
[2016-08-13] MEDS: *HR* OxyCODONE Immed Rel 5 MG TABLET PO PRN ×2 (08:17→15:09)
[2016-08-13 12:09] VITALS: BP 146/87
--- NOTE | 2016-08-13 17:05 | Discharge Summary ---
Date of Encounter: 08/13/16 Time of Encounter: 17:01 - Discharge Diagnosis (1) Asthma exacerbation with COPD (chronic obstructive pulmonary disease) Priority: Primary Status: Acute (2) Hypertension Priority: Secondary Status: Acute Qualifiers: Hypertension type: essential hypertension Qualified Code(s): I10 - Essential (primary) hypertension (3) Hypertension, accelerated Priority: Primary Status: Acute (4) Lung nodule < 6cm on CT Priority: Primary Status: Acute (5) Lesion of liver Priority: Primary Status: Acute - Discharge Medications Prescriptions: HydrALAZINE 25 mg PO Q8HR #90 tablet Fluticasone/Salmeterol [Advair 250-50 Diskus] 1 each IH BID #1 blst.w.dev Levofloxacin [Levaquin] 500 mg PO DAILY #10 tablet Nicotine Patch [Nicoderm] 21 mg TD DAILY #14 patch.td24 PredniSONE 10 mg PO DAILY #30 tablet Tiotropium [Spiriva] 18 mcg IH DAILY #1 inh Home Medications: Aspirin [Adult Low Dose Aspirin EC] 81 mg PO QAM 07/11/15 [History] Ibuprofen [Motrin] 800 mg PO Q8HR 07/11/15 [History] Lisinopril [Zestril] 20 mg PO DAILY 07/11/15 [History] CloNIDine HCl 0.1 mg PO TID #30 tablet 08/08/16 [Rx] Gabapentin [Neurontin] 400 mg PO QAM 08/08/16 [History] Brimonidine Tartrate/Timolol [Combigan 0.2%-0.5% Eye Drops] 1 drop OP BID [History] Cetirizine HCl 10 mg PO DAILY 08/11/16 [History] Gabapentin [Neurontin] 800 mg PO HS 08/11/16 [History] Metoprolol XL (24 HR) Succ [Toprol Xl] 100 mg PO DAILY 08/11/16 [History] Tramadol HCl [Ultram] 50 mg PO QID PRN 08/11/16 [History] Fluticasone/Salmeterol [Advair 250-50 Diskus] 1 each IH BID #1 blst.w.dev [Rx] HydrALAZINE 25 mg PO Q8HR #90 tablet 08/13/16 [Rx] Levofloxacin [Levaquin] 500 mg PO DAILY #10 tablet 08/13/16 [Rx] Nicotine Patch [Nicoderm] 21 mg TD DAILY #14 patch.td24 08/13/16 [Rx] PredniSONE 10 mg PO DAILY #30 tablet 08/13/16 [Rx] Tiotropium [Spiriva] 18 mcg IH DAILY #1 inh 08/13/16 [Rx] Allergies/Adverse Reactions: Allergies Sulfa (Sulfonamide Antibiotics) Allergy (Verified 08/11/16 18:37) Vomiting Procedures/tests Complete & Pending: Procedures Performed prior 72 hours Category Date Time Status CT chest wo con [CT] Routine Cat Scan 08/12/16 07:40 Completed MR abdomen wo/w con [MR] Routine MRI 08/13/16 06:54 Completed ECG 12 lead ECG [ECG] Routine Y 08/12/16 07:00 Ordered EV ankle brachial index Routine Y 08/12/16 23:44 Completed EV echocardiogram Routine Y 08/12/16 23:44 Completed Date of admission: 08/11/16 21:06 Primary care physician: Matilde Barron CNP Consults: 08/11/16 23:44 Consult to Nurse Navigator [CONS] Routine Comment: Consult to Nurse Navigator [CONS] Routine Comment: - Patient Status Disposition: Home, Self-Care Condition: Good Overall status at discharge: patient is back to baseline - Discharge Instructions Instructions: Prednisone (By mouth), Nicotine (Absorbed through the skin), Hydralazine (By mouth), Levofloxacin (By mouth), Fluticasone/Salmeterol (By breathing), Tiotropium (By breathing), Chest Pain (DC), Abuse of Alcohol (DC) Follow Up With: Matilde Barron CNP [Primary Care Provider] - - Diet and Activity Activity: increase activity as tolerated Diet: low fat, low cholesterol Hospital course: Ms. Manning is a 51 year old female who presented with SOB and acute exacerbation of COPD, patient was treated with steroids, nebs and abx with improvement. She was also found to have a lung nodule requiring outpatient followup. A liver lesion was also seen on CT, however repeat MRI suggested adenomas. Pt is discharged in stable condition with outpatient followup with PCP recommended. - Time Spent with Patient Total time spent providing and/or coordinating discharge services: - Constitutional Vitals: Temp Pulse Resp BP Pulse Ox 97.9 F 64 18 146/87 96 08/13/16 12:08 08/13/16 12:08 08/13/16 15:36 08/13/16 12:08 08/13/16 15:36 General appearance: Present: cooperative, mild distress, A&O X 3, answers questions appropriately
== END 2016-08-13 17:39 | disposition home or self-care (01) ==
LOC: 3BNU 18:35 → EMEROO 18:35 → SUATTDRO 21:06 → 3BNU 22:12
PROVIDERS: ADMIT Hospitalist; ATTEND Family Medicine

== ENCOUNTER 2019-05-11 13:43 | Inpatient (IN) ==
[2019-05-11 02:44] LABS: Bilirubin,Urine Small (Negative); Blood,Urine Moderate (Negative); Clarity,Urine Turbid (Clear); Color,Urine Dark Yellow (Yellow); Glucose,Urine (UA) Normal (Normal); Ketones,Urine Negative (Negative); Leukocyte Esterase,Urine Moderate (Negative); Nitrite,Urine Negative (Negative); Protein,Urine >=300 mg/dL (Neg-Trace); Specific Gravity,Urine 1.016 (1.010-1.025); Urobilinogen,Urine Normal (Normal)
[2019-05-11 02:46] LABS: RBC,Urine 15-30 per hpf (0-3); Squamous Epithelial Cell,Urine Many per lpf (None-Few); WBC,Urine TNTC per hpf (0-3)
[2019-05-11 02:57] LABS: Amorphous Sediment,Urine Moderate (Few); Bacteria,Urine Moderate per hpf (None-Few); Hyaline Casts,Urine None Seen per lpf (None-Few)
[2019-05-11 03:07] LABS: Protein/Creatinine Ratio,Urine 3.12 mg/mg (0.00-0.20); Sodium, Urine 31.5 mEq/L
[2019-05-11 03:10] LABS: Basophils % 0.1 %; Eosinophils % 0.1 %; Hematocrit 30.4 % (35.3-44.9); Hemoglobin 11.4 g/dL (11.5-15.4); Immature Granulocytes % 4.3 % (0-4); Lymphocytes # 0.7 K/mcL (0.6-4.6); Lymphocytes % 5.1 %; Mean Corpuscular Hemoglobin 32.6 pg (28.0-33.3); Mean Corpuscular Volume 86.9 fL (83.0-100.0); Mean Platelet Volume 12.4 fL (9.4-12.4); Monocytes # 0.9 K/mcL (0.0-1.3); Monocytes % 6.2 %; Neutrophils # 11.9 K/mcL (1.6-8.9); Platelet Count 123 K/mcL (140-400); Red Cell Distribution Width 14.3 % (11.5-14.5); Segmented Neutrophils % 84.2 %; White Blood Count 14.2 K/mcL (4.3-11.1)
[2019-05-11 03:20] LABS: INR 1.2; Prothrombin Time 13.4 Seconds (9.4-12.1)
[2019-05-11 03:22] LABS: Activated Partial Thrombo Time 31.6 Seconds (26.0-36.0)
[2019-05-11 03:30] LABS: Albumin 2.9 g/dL (3.5-5.7); Albumin/Globulin Ratio 0.9 (1.1-2.2); Bilirubin,Total 1.1 mg/dL (0.3-1.0); Calcium 7.4 mg/dL (8.6-10.3); Globulin 3.2 g/dL (2.4-3.5); Magnesium 1.4 mg/dL (1.6-2.6); Phosphorous 4.8 mg/dL (2.7-4.5); Potassium 3.4 mEq/L (3.5-5.1); Total Protein 6.1 g/dL (6.4-8.9)
[2019-05-11] MEDS: 0.9 % Sodium Chloride 1,000 ML IVC SCH ×2 (03:34→18:29)
[2019-05-11 03:40] LABS: Mean Corpuscular HGB Conc 37.5 g/dL (31.6-35.5)
[2019-05-11 08:37] LABS: Calcium 7.9 mg/dL (8.6-10.3); Potassium 3.9 mEq/L (3.5-5.1)
[2019-05-11] MEDS: cefTRIAXone 2,000 MG in Water for inj. (sterile) 20 ML IVPB SCH (09:08)
[2019-05-11] MEDS: *HR* Heparin 5,000 UNIT/ML VIAL SQ SCH ×3 (10:03→20:34)
[2019-05-11 12:14] LABS: Complement C3 141 mg/dL (87-200)
[~2019-05-11 13:43] MED LIST: Ipratropium/Albuterol Neb 3 ML IH PRN; Naloxone 0.4 MG/ML INJ IVP PRN; Ondansetron 4 MG/2 ML VIAL IVP PRN
[2019-05-11] MEDS ORDERED: Diclofenac Sodium (DR) 50 MG TABLET.DR PO SCH (17:00)
[2019-05-11] MEDS: Simethicone 80 MG TAB.CHEW PO SCH ×2 (18:27→20:34)
[2019-05-11] MEDS: Gabapentin 400 MG CAPSULE PO SCH (20:35)
[2019-05-11] MEDS: amLODIPine 5 MG TABLET PO SCH (20:35)
[2019-05-11] MEDS ORDERED: Latanoprost 2.5 ML BOTTLE BOTH EYES SCH (21:00)
[2019-05-11] MEDS: Diclofenac Sodium (DR) 50 MG TABLET.DR PO SCH (21:07)
[2019-05-12 05:09] LABS: Basophils % 0.2 %; Eosinophils % 0.2 %; Hematocrit 29.7 % (35.3-44.9); Hemoglobin 11.1 g/dL (11.5-15.4); Immature Granulocytes % 2.4 % (0-4); Lymphocytes # 0.8 K/mcL (0.6-4.6); Lymphocytes % 4.8 %; Mean Corpuscular Hemoglobin 32.4 pg (28.0-33.3); Mean Corpuscular Volume 86.6 fL (83.0-100.0); Mean Platelet Volume 11.6 fL (9.4-12.4); Monocytes # 1.1 K/mcL (0.0-1.3); Monocytes % 6.8 %; Neutrophils # 13.7 K/mcL (1.6-8.9); Platelet Count 176 K/mcL (140-400); Red Blood Count 3.43 M/mcL (3.82-4.97); Red Cell Distribution Width 14.6 % (11.5-14.5); Segmented Neutrophils % 85.6 %
[2019-05-12] MEDS: *HR* Heparin 5,000 UNIT/ML VIAL SQ SCH ×2 (05:20→14:41)
[2019-05-12 05:23] LABS: Mean Corpuscular HGB Conc 37.4 g/dL (31.6-35.5)
[2019-05-12 05:27] LABS: Calcium 7.9 mg/dL (8.6-10.3); Magnesium 2.1 mg/dL (1.6-2.6); Potassium 3.4 mEq/L (3.5-5.1)
[2019-05-12] MEDS ORDERED: 0.9 % Sodium Chloride 1,000 ML IVC SCH (08:15)
[2019-05-12] MEDS: Simethicone 80 MG TAB.CHEW PO SCH ×2 (08:16→12:24)
[2019-05-12] MEDS: Diclofenac Sodium (DR) 50 MG TABLET.DR PO SCH (08:16)
[2019-05-12] MEDS: amLODIPine 5 MG TABLET PO SCH (08:16)
[2019-05-12] MEDS: Gabapentin 400 MG CAPSULE PO SCH (08:16)
[2019-05-12] MEDS: cefTRIAXone 2,000 MG in Water for inj. (sterile) 20 ML IVPB SCH (08:16)
[2019-05-12] MEDS ORDERED: Aspirin Enteric Coated 81 MG Tablet PO SCH (09:00)
[2019-05-12] MEDS ORDERED: Fluticasone Propionate Nasal 50 MCG/SPRAY BOTTLE NS SCH (09:00)
[2019-05-12] MEDS ORDERED: Budesonide/Formoterol 80/4.5 1 PUFF INH IH SCH (09:00)
[2019-05-12] MEDS ORDERED: Metoprolol XL (24 HR) Succ 50 MG TAB.ER.24H PO SCH (09:00)
[2019-05-12] MEDS: Potassium Chloride Elixir 20 MEQ/15 ML UDC PO SCH ×2 (09:33→12:24)
[2019-05-12] MEDS ORDERED: Nicotine 21 MG PATCH.TD24 TD SCH (11:00)
[2019-05-12 11:16] VITALS: BP 98/60
[2019-05-13 05:17] LABS: Kappa Qnt Free Light Chains 14.6 mg/dL (0.33-1.94); Lambda Qnt Free Light Chains 9.38 mg/dL (0.57-2.63)
[2019-05-13] MEDS ORDERED: Gabapentin 400 MG CAPSULE PO SCH (09:00)
[2019-05-13 13:11] LABS: ANA IgG by ELISA NONE DETECTED (None Detected); Serine Protease-3 Antibody 0 AU/mL (0-19)
[2019-05-14 18:00] LABS: Alpha 2 Globulin (PEP) 1.19 g/dL (0.48-1.05); Beta Globulin (PEP) 0.84 g/dL (0.48-1.10)
[2019-05-15 07:16] LABS: IFE Reflexed IFE Done; Immunoglobulin A 504 mg/dL (68-408); Immunoglobulin G 597 mg/dL (768-1632); Immunoglobulin M 189 mg/dL (35-263)
== END 2019-05-12 15:44 | disposition home or self-care (01) | DRG 720 ==
LOC: 3ANU
PROVIDERS: ADMIT Internal Medicine; ATTEND Internal Medicine